=== PATIENT | female | born 1995 | race Caucasian/White ===

== ENCOUNTER → 2023-05-23 | Outpatient (CLI) | payer OTHER, SELFPAY ==
[2023-05-27 07:08] LABS: Chlamydia By Nucleic Acid AMP Negative (Negative); Gonococcus By Nucleic Acid AMP Negative (Negative)
== END | disposition home or self-care (01) ==
LOC: LABSPEC 16:51
PROVIDERS: Referring Provider Advanced Practice Midwife; Visit Provider Advanced Practice Midwife
DX: Z34.90 Encounter for supervision of normal pregnancy, unspecified, unspecified trimester (principal); Z3A.00 Weeks of gestation of pregnancy not specified
CPT/HCPCS: 87086; 87088; 87491; 87591

== ENCOUNTER → 2023-06-06 | Outpatient (CLI) | payer OTHER, SELFPAY ==
[2023-06-06 10:44] LABS: Absolute Lymphocyte Count 2.28 X10^3/uL (0.83-4.51); Absolute Neutrophil Count 5.8 X10^3/uL (2.0-7.7); Basophil# 0.03 X10^3/uL; Basophil% 0.3 % (0-1); Eosinophil# 0.02 X10^3/uL; Eosinophils% 0.2 % (0-5); Hematocrit 37.5 % (37-47); Lymphocyte # 2.28 X10^3/ul (0.83-4.51); Lymphocyte % 25.7 % (19-41); Mean Corp Hgb Conc 34.7 g/dL (32-36); Mean Corpuscular Hgb 30.1 pg (27.0-32.0); Mean Corpuscular Volume 86.8 fL (81-99); Mean Platelet Vol. 9.3 fl (6.2-12.0); Monocyte# 0.72 X10^3/uL; Monocyte% 8.1 % (0-10); NRBC Flagged by Analyzer 0 % (0-5); Neutrophil % 65.4 % (47-70); Platelet Count 359 K/mm3 (150-450); RBC Distribution Width CV 12.2 % (11.6-14.6); RBC Distribution Width SD 38.9 fl (35.1-43.9); Red Blood Count 4.32 M/mm3 (4.2-5.4); White Blood Count 8.9 K/mm3 (4.4-11.0)
[2023-06-06 11:08] LABS: Hemoglobin A1c 5.2 % (3.8-5.6)
[2023-06-06 11:15] LABS: NATERA MAILED SPECIMEN
[2023-06-06 12:00] LABS: HIV - WCH Non-Reactive (Nonreactive); Hepatitis B Surface Antigen Non-Reactive (Nonreactive); Hepatitis C Antibody Non-Reactive (Nonreactive); Rubella IgG Reactive (Nonreactive); Syphilis Antibodies Non-reactive
== END | disposition home or self-care (01) ==
LOC: LAB 10:10
PROVIDERS: Referring Provider Advanced Practice Midwife; Visit Provider Advanced Practice Midwife
DX: O99.210 Obesity complicating pregnancy, unspecified trimester (principal); Z3A.00 Weeks of gestation of pregnancy not specified
CPT/HCPCS: 36415; 83036; 85025; 86703; 86762; 86780; 86803; 86850; 86900; 86901; 87340

== ENCOUNTER → 2023-06-09 | Outpatient (CLI) | payer OTHER, SELFPAY ==
[2023-06-09 17:28] LABS: NATERA MAILED SPECIMEN
== END | disposition home or self-care (01) ==
LOC: LAB 16:21
PROVIDERS: Referring Provider Advanced Practice Midwife; Visit Provider Advanced Practice Midwife
DX: Z34.81 Encounter for supervision of other normal pregnancy, first trimester (principal)

== ENCOUNTER → 2023-07-18 | Outpatient (CLI) | payer OTHER, SELFPAY | END | disposition home or self-care (01) | LOC: LABSPEC 16:54 | PROVIDERS: Referring Provider Advanced Practice Midwife; Visit Provider Advanced Practice Midwife | DX: R35.0 Frequency of micturition (principal) | CPT/HCPCS: 87086 ==

== ENCOUNTER → 2023-09-12 | Outpatient (CLI) | payer OTHER, SELFPAY ==
[2023-09-12 10:36] LABS: Absolute Lymphocyte Count 2.32 X10^3/uL (0.83-4.51); Absolute Neutrophil Count 7.6 X10^3/uL (2.0-7.7); Basophil# 0.04 X10^3/uL; Basophil% 0.4 % (0-1); Eosinophil# 0.02 X10^3/uL; Eosinophils% 0.2 % (0-5); Hematocrit 30.6 % (37-47); Hemoglobin 10.1 g/dL (12.0-15.0); Lymphocyte # 2.32 X10^3/ul (0.83-4.51); Lymphocyte % 21.6 % (19-41); Mean Corpuscular Hgb 29.8 pg (27.0-32.0); Mean Corpuscular Volume 90.3 fL (81-99); Mean Platelet Vol. 9.1 fl (6.2-12.0); Monocyte# 0.67 X10^3/uL; Monocyte% 6.2 % (0-10); NRBC Flagged by Analyzer 0 % (0-5); Neutrophil % 70.7 % (47-70); Platelet Count 334 K/mm3 (150-450); RBC Distribution Width CV 12.7 % (11.6-14.6); RBC Distribution Width SD 41.7 fl (35.1-43.9); Red Blood Count 3.39 M/mm3 (4.2-5.4); White Blood Count 10.8 K/mm3 (4.4-11.0)
[2023-09-12 10:47] LABS: Glucose Challenge Gest 1H 50g 140 mg/dL (70-140)
[2023-09-12 11:22] LABS: HIV - WCH Non-Reactive (Nonreactive); Syphilis Antibodies Non-reactive
--- OUTSIDE RECORDS SUMMARY | 2023-09-12 13:00 | XMS RPT_ITS | CCD ---
Author Name Unknown Address [facility] [place] [address] Organization [facility] Care Team Providers Care Industrial Hygiene Engineer Name Role Phone GABRIEL HUDSON Referring Unavailable YONY CABAN Attending Unavailable GABRIEL HUDSON Attending Unavailable GORDON PRIMARY CAREMD Primary Care Unavailable GARRET JAY Referring UnavailRITA Worley Attending Unavailable Problems Problem Classification Problem Date Documented Da te Episodic/Chronic Abdominal pain (2 sources) Unspecified abdominal pain; Translations: [Unspecified abdominal pain] Onset: 08-14-2022 Episodic Fluid and electrolyte disorders (2 sources) Dehydration; Translations: [Dehydration] Onset: 08-14-2022 Episodic Urinary tract infections (2 sources) Urinary tract infection, site not specified; Translations: [Urinary tract infection, site not specified] Onset: 08-14-2022 Episodic Results Test Name Value Interpretation Reference Range Facil ity Encounters Encounter Date Encounter Type Care Provider Facility Start: 07-31-2023 End: 07-31-2023 ambulatory MD [facility] Start: 08-14-2022 End: 08-15-2022 Emergency department patient visit GABRIEL [facility] Start: 08-14-2022 End: 08-14-2022 Emergency department patient visit GABRIEL [facility] Start: 08-14-2022 End: 08-14-2022 ambulatory YONY CABAN [facility] Payers Date Payer Category Payer Unknown [id number] 1995 Unknown [id number] Private Health Insurance [id number] Clinical Note 08-14-2022 Note Date & Type Note Facility 08-14-2022 Note Patient returned to the unit, resting comfortably in cot awaiting CT results for further plan of care. Patients mother bedside. Shari Ga, RN 08/14/22 1611 [facility] Summary Purpose Family History No Family History Records FoundNo Family History Records FoundNo Family History Records FoundNo Family History Records Found Advance Directives No Advanced Directives Records FoundNo Advanced Directives Records FoundNo Advanced Directives Records FoundNo Advanced Directives Records Found Additional Source Comments INFORMATION SOURCE (unrecogn ized section and content) DATE CREATED AUTHOR AUTHOR'S ORGANIZ ATION 07/02/2020 [facility] DATE CREATED AUTHOR AUTHOR'S ORGANIZ ATION 08/20/2022 [facility] DATE CREATED AUTHOR AUTHOR'S ORGANIZ ATION 08/01/2023 [facility] FOR RECORDS PERTAINING TO PATIENTS WHO ARE OR HAVE BEEN ENROLLED IN A CHEMICAL DEPENDENCY/SUBSTANCEABUSE PROGRAM, SOME INFORMATION MAY BE OMITTED. This clinical summary was aggregated from multiple sources. Caution should be exercised in using it in the provision of clinical care. This summary normalizes information from multiple sources, and as a consequence, information in this document may materially change the coding, format and clinical context of patient data. In addition, data may be omitted in some cases. CLINICAL DECISIONS SHOULD BE BASED ON THE PRIMARY CLINICAL RECORDS. [facility] [employer] provides no warranty or guarantee of the accuracy or completeness of information in this document.
== END | disposition home or self-care (01) ==
LOC: PAVLAB 10:15
PROVIDERS: Advanced Practice Midwife; Referring Provider Obstetrics & Gynecology; Visit Provider Obstetrics & Gynecology
DX: O09.90 Supervision of high risk pregnancy, unspecified, unspecified trimester (principal); Z13.1 Encounter for screening for diabetes mellitus; Z3A.00 Weeks of gestation of pregnancy not specified
CPT/HCPCS: 36415; 82950; 85025; 86703; 86780

== ENCOUNTER → 2023-10-09 | Outpatient (CLI) | payer OTHER, SELFPAY ==
--- OUTSIDE RECORDS SUMMARY | 2023-10-09 07:16 | XMS RPT_ITS | CCD ---
Author Name Unknown Address [facility] [place] [address] Organization [facility] Care Team Providers Care Reservationist Name Role Phone GABRIEL HUDSON Referring Unavailable [...] End: 07-31-2023 ambulatory MD [facility] Start: 08-14-2022 End: 08-15-2022 Emergency department patient visit GABRIEL [facility] Start: 08-14-2022 End: 08-14-2022 Emergency department patient visit GABRIEL [facility] Start: 08-14-2022 End: 08-14-2022 ambulatory YONY CABAN [facility] Payers Date Payer Category Payer Unknown [id number] 1995 Unknown [id number] Private Health Insurance [id number] Clinical Note 08-14-2022 Note Date & Type Note Facility 08-14-2022 Note Patient returned to the unit, resting comfortably in cot awaiting CT results for further plan of care. Patients mother bedside. Shari Ga, RN 08/14/22 1611 [facility] Summary Purpose Family History No Family History Records FoundNo Family History Records FoundNo Family History Records FoundNo Family History Records Found Advance Directives No Advanced Directives Records FoundNo Advanced Directives Records FoundNo Advanced Directives Records FoundNo Advanced Directives Records Found Additional Source Comments INFORMATION SOURCE (unrecogn ized section and content) DATE CREATED AUTHOR AUTHOR'S ORGANIZ ATION 07/02/2020 [facility] DATE CREATED AUTHOR AUTHOR'S ORGANIZ ATION 08/20/2022 [facility] DATE CREATED AUTHOR AUTHOR'S ORGANIZ ATION 08/01/2023 [facility] FOR RECORDS PERTAINING TO PATIENTS WHO ARE [...] BE BASED ON THE PRIMARY CLINICAL RECORDS. [facility] [employer] provides no warranty or guarantee of the accuracy or completeness of information in this document.
[2023-10-09 07:58] LABS: Glucose GTT-Gestation. Fasting 81 mg/dL (<105)
[2023-10-09 09:22] LABS: Glucose GTT-Gestational 1 Hr 153 mg/dL (<190)
[2023-10-09 10:28] LABS: Glucose GTT-Gestational 2 Hr 134 mg/dL (<165)
[2023-10-09 11:22] LABS: Glucose GTT-Gestational 3 Hr 55 L (<145)
== END | disposition home or self-care (01) ==
LOC: LAB 07:07
PROVIDERS: Referring Provider Advanced Practice Midwife; Visit Provider Advanced Practice Midwife
DX: R69 Illness, unspecified (principal)
CPT/HCPCS: 36415; 82951; 82952

== ENCOUNTER → 2023-10-24 | Outpatient (CLI) | payer OTHER, SELFPAY ==
--- OUTSIDE RECORDS SUMMARY | 2023-10-24 09:44 | XMS RPT_ITS | CCD ---
Author Name Unknown Address [address] [place] [address] Organization [facility] Care Team Providers Care Strap Making Machine Operator Name Role Phone GABRIEL HUDSON Referring Unavailable [...] End: 07-31-2023 ambulatory MD [facility] Start: 08-14-2022 End: 08-15-2022 Emergency department patient visit GABRIEL [facility] Start: 08-14-2022 End: 08-14-2022 Emergency department patient visit GABRIEL [facility] Start: 08-14-2022 End: 08-14-2022 ambulatory YONY CABAN [facility] Payers Date Payer Category Payer Unknown [id number] 1995 Unknown [id number] Private Health Insurance [id number] Clinical Note 08-14-2022 Note Date & Type Note Facility 08-14-2022 Note Patient returned to the unit, resting comfortably in cot awaiting CT results for further plan of care. Patients mother bedside. Shari Ga, RN 08/14/22 1611 [facility] Summary Purpose Family History No Family History Records FoundNo Family History Records FoundNo Family History Records FoundNo Family History Records Found Advance Directives No Advanced Directives Records FoundNo Advanced Directives Records FoundNo Advanced Directives Records FoundNo Advanced Directives Records Found Additional Source Comments INFORMATION SOURCE (unrecogn ized section and content) DATE CREATED AUTHOR AUTHOR'S ORGANIZ ATION 07/02/2020 [facility] DATE CREATED AUTHOR AUTHOR'S ORGANIZ ATION 08/20/2022 [facility] DATE CREATED AUTHOR AUTHOR'S ORGANIZ ATION 08/01/2023 [facility] FOR RECORDS PERTAINING TO PATIENTS WHO [...] BE BASED ON THE PRIMARY CLINICAL RECORDS. [facility] [employer] provides no warranty or guarantee of the accuracy or completeness of information in this document.
[2023-10-24 09:51] LABS: Absolute Lymphocyte Count 2.54 X10^3/uL (0.83-4.51); Absolute Neutrophil Count 7.7 X10^3/uL (2.0-7.7); Basophil# 0.05 X10^3/uL; Basophil% 0.4 % (0-1); Eosinophil# 0.03 X10^3/uL; Eosinophils% 0.3 % (0-5); Hematocrit 30.9 % (37-47); Lymphocyte # 2.54 X10^3/ul (0.83-4.51); Lymphocyte % 22.2 % (19-41); Mean Corp Hgb Conc 32.4 g/dL (32-36); Mean Corpuscular Hgb 28.3 pg (27.0-32.0); Mean Corpuscular Volume 87.5 fL (81-99); Mean Platelet Vol. 9.3 fl (6.2-12.0); Monocyte# 0.97 X10^3/uL; Monocyte% 8.5 % (0-10); NRBC Flagged by Analyzer 0 % (0-5); Neutrophil # 7.72 X10^3/uL (2.7-7.7); Neutrophil % 67.4 % (47-70); Platelet Count 358 K/mm3 (150-450); RBC Distribution Width CV 12.7 % (11.6-14.6); RBC Distribution Width SD 40.5 fl (35.1-43.9); Red Blood Count 3.53 M/mm3 (4.2-5.4); White Blood Count 11.5 K/mm3 (4.4-11.0)
[2023-10-24 10:14] LABS: Ferritin 17 ng/mL (8-252); Iron 88 ug/dL (50-170); Iron Binding Capacity,Total 428 ug/dL (250-450); PERCENT IRON SATURATION 20.6 % (15.0-55.0)
== END | disposition home or self-care (01) ==
PROVIDERS: Referring Provider Registered Nurse; Visit Provider Registered Nurse
DX: O99.019 Anemia complicating pregnancy, unspecified trimester (principal); Z3A.00 Weeks of gestation of pregnancy not specified
CPT/HCPCS: 36415; 82728; 83540; 83550; 85025

== ENCOUNTER 2023-11-11 08:50 | Outpatient (CLI) | payer OTHER, SELFPAY ==
[2023-11-11 09:09] VITALS: BP 111/69; PULSE 102; O2SAT 94
[2023-11-11 09:10] VITALS: RESP 16; TEMP 36.8; O2SAT 97
[2023-11-11] MEDS: Lactated Ringers 1,000 ML 999 ML IV (09:25)
[2023-11-11 09:36] VITALS: BMI 32.9
[2023-11-11] MEDS: Ondansetron 4 MG/2 ML Vial IV (09:48)
--- NOTE | 2023-11-11 18:08 | OB.TRI.PN ---
Progress Notes Date of Service: 11/11/23 Progress Note: Patient presents for triage evaluation secondary to nausea and vomiting FHT: 140 Moderate variability reactive no decelerations category I tracing [place]: regular tightening of abdomen/not feeling contractions Assessment and plan: closed SVE, IV fluids and zofran. Feeling better with hydration. likely viral. Reactive NST, reassuring maternal and status patient discharged to home to follow-up in office or PRN if vomiting continues. See problem list details for additional plan information. Charges/Coding Multi Select Codes Urinary/Genital Urinary/Genital CPT Codes: 81660-79 non-stress test Interp Assessment & Plan (1) Nausea and vomiting: COMMENT: Zofran (2) : QUALIFIERS: Weeks of gestation: 33 weeks Qualified Code(s): Z3A.33 - 33 weeks gestation of COMMENT: Carrier neg. 106/106, NIPT low risk, nl anatomy with consistent WAQAS (3) Supervision of high risk , antepartum: COMMENT: PRR, WAQAS 12/23/23 BF Matias (4) Obesity affecting : COMMENT: A1C normal (5) UTI (urinary tract infection) in , antepartum: COMMENT: nl at re check (6) Abnormal glucose affecting : COMMENT: nl 3 hour gct (7) Anemia affecting : COMMENT: start po iron
== END 2023-11-11 11:18 | disposition home or self-care (01) ==
LOC: WPOUT 08:58 → WP 08:58
PROVIDERS: Referring Provider Advanced Practice Midwife; Visit Provider Advanced Practice Midwife
DX: O21.2 Late vomiting of pregnancy (principal); O09.93 Supervision of high risk pregnancy, unspecified, third trimester; O99.213 Obesity complicating pregnancy, third trimester; O99.013 Anemia complicating pregnancy, third trimester; Z3A.33 33 weeks gestation of pregnancy
CPT/HCPCS: 96374; 96361; 59025; 59050; 99221; J7120; G0378; J2405

== ENCOUNTER → 2023-11-28 | Outpatient (CLI) | payer OTHER, SELFPAY | END | disposition home or self-care (01) | PROVIDERS: Referring Provider Advanced Practice Midwife; Visit Provider Advanced Practice Midwife | DX: Z34.90 Encounter for supervision of normal pregnancy, unspecified, unspecified trimester (principal) | CPT/HCPCS: 87081 ==

== ENCOUNTER 2023-12-15 07:34 | Inpatient (IN) | payer OTHER, SELFPAY ==
[2023-12-15] VITALS (72 sets, daily range): BP systolic 95–180; BP diastolic 51–129; PULSE 75–112; RESP 14–17; TEMP 36.8–38.3; O2SAT 81–99; BMI 32.6
[2023-12-15 07:30] LABS: ROM Internal Control Test YES-OK TO RESULT pt. (Internal QC)
[2023-12-15 07:31] LABS: ROM Patient Test POSITIVE (Negative); Record Kit Lot#, ROM+ K1409
--- NOTE | 2023-12-15 07:41 | HP.PCM.OB_ITS ---
HPI - General General Date of Admission: 12/15/23 Date of Service: 12/15/23 HPI Narrative SHAKIR CERDA, is a 28 F 38.6 weeks gestation who presents to unit with vaginal discharge and contractions. +ROM. SROM at 0500 for clear fluid Maternal Data Information WAQAS Calculator Estimated Delivery Date Method Current WG Current Estimate 12/23/23 LMP (Certain) 38w 6d Final WAQAS: 12/23/23 Final WAQAS Source: US >20 weeks Gestational age: 38.6 weeks PFSH PFSH Medical History Osteomyelitis of ankle and foot Home Medications vitamins-iron fumarate 65 mg iron-folic acid 1 mg tablet (Mynatal Plus) 1 tab PO DAILY 11/11/23 [History Last Taken 12/14/23] Allergy/AdvReac Type Severity Reaction Status Date / Time No Known Allergies Allergy Verified 12/15/23 07:35 Social History adopted: No household members: family housing: house current occupational status: employed pets and animals: No history of recent travel: No sexually active: Yes Smoking Status: Never smoker alcohol intake: never substance use type: does not use caffeine: No seatbelt use: always do you feel safe at home: Yes additional social history: BF- Matias momAnna Ursula History 1 Elective abortions Hx Para 0 Spontaneous abortions Hx # Term Pregnancies Ectopic pregnancies Hx # Pregnancies Multiple births # of living children Visit Details Expected Delivery Route/Plan Labor Preferences- CB/BF classes: declined labor support person: ursulaAnna gia mom Janae riddle mom devorah rodriguez labor intervention preferences: none pain management options preferred: open cut cord/dad catch: yes : yes PP control planned: [] discussed possible routes of delivery and associated risks: [] special requests: [] Plans Covid status: [] Flu vaccine: [] Tdap vaccine: given Rhogam: na LARC form signed: declined movement and labor precautions reviewed. Problem list reviewed and updated with the most current plan of care details and appropriate orders placed. Relevant counseling for the gestational age provided. Continue routine care and follow up unless otherwise noted in visit notes/problem list details OB Flowsheet Initial Weight: Not Recorded Date -?-?-?-?-?-?-?-?-?-?-?-?- EGA Weight BP Urine Prot -?-?-?-?-?-?-?-?-?-?-?-?- Glucose FHR FuHt Pres Dilation -?-?-?-?-?-?-?-?-?-?-?-?- Effaced St Visit Note 05/23/23 -?-?-?-?-?-?-?-?-?-?-?-?- 9w 3d 192 lb 6 oz 120/80 -?-?-?-?-?-?-?-?-?-?-?-?- 163 -?-?-?-?-?-?-?-?-?-?-?-?- KW- CRL 23.6-con s with dates. having some N&V. zofran and comfort measures recommended 06/19/23 -?-?-?-?-?-?-?-?-?-?-?-?- 13w 2d 190 lb 4 oz 100/69 Nega tive -?-?-?-?-?-?-?-?-?-?-?-?- Negative 160 -?-?-?-?-?-?-?-?-?-?-?-?- KW-no vb/crampin g. labs reviewed. Discussed AFP today and wants to think about it. Formal US ordered today. 07/18/23 -?-?-?-?-?-?-?-?-?-?-?-?- 17w 3d 185 lb 114/77 Trace -?-?-?-?-?-?-?-?-?-?-?-?- Negative 160 -?-?-?-?-?-?-?-?-?-?-?-?- kw- no vb/crampi ng. declines AFP. UTI today. Treated. 08/20/23 -?-?-?-?-?-?-?-?-?-?-?-?- 22w 1d 192 lb 116/77 Negative -?-?-?-?-?-?-?-?-?-?-?-?- Negative 147 -?-?-?-?-?-?-?-?-?-?-?-?- JV- no lof, vagi nal bleeding, or cramping. normal anatomy scan. 09/12/23 -?-?-?-?-?-?-?-?-?-?-?-?- 25w 3d 197 lb 102/63 Negative -?-?-?-?-?-?-?-?-?-?-?-?- Negative 150 26 -?-?-?-?-?-?-?-?-?-?-?-?- KW- no vb/crampi ng. good fm. needs 3 hour glucose. start PO iron. 10/10/23 -?-?-?-?-?-?-?-?-?-?-?-?- 29w 3d 198 lb 6 oz 118/76 Nega tive -?-?-?-?-?-?-?-?-?-?-?-?- Negative 144 29 -?-?-?-?-?-?-?-?-?-?-?-?- LC-no vb/ctx/lof . good fm. passed 3 hour. larc signed. tdap given today. cbc and iron studies to be obtained today. 10/24/23 -?-?-?-?-?-?-?-?-?-?-?-?- 31w 3d 203 lb 6 oz 124/74 Nega tive -?-?-?-?-?-?-?-?-?-?-?-?- Negative 155 31 -?-?-?-?-?-?-?-?-?-?-?-?- KW- no vb/lof/ct x. good fm. to get labs today after appt. no concerns. 11/07/23 -?-?-?-?-?-?-?-?-?-?-?-?- 33w 3d 197 lb 6 oz Negative -?-?-?-?-?-?-?-?-?-?-?-?- Negative 145 33 Cephalic -?-?-?-?-?-?--?-?-?-?-?-?- KW- no vb/lof/ct x. good fm. 11/21/23 -?-?-?-?-?-?-?-?-?-?-?-?- 35w 3d 201 lb 106/61 Negative -?-?-?-?-?-?-?-?-?-?-?-?- Negative 140 35 -?-?-?-?-?-?-?-?-?-?-?-?- LC- no vb/ctx/lo f.good fm. obtain cbc next visit to check H&H. 11/28/23 -?-?-?-?-?-?-?-?-?-?-?-?- 36w 3d 197 lb 2 oz 102/64 Nega tive -?-?-?-?-?-?-?-?-?-?-?-?- Negative 135 36 Cephalic 2 -?-?-?-?-?-?-?-?-?-?-?-?- 50 -3 KW- no vb/ lof/ctx. good fm. gbs today. labor precautions. cbc today 12/05/23 -?-?-?-?-?-?-?-?-?-?-?-?- 37w 3d 199 lb 6 oz 199 lb 6 oz 111/82 Trace -?-?-?-?-?-?-?-?-?-?-?-?- Negative 130 Cephalic 2 -?-?-?-?-?-?-?-?-?-?-?-?- 80 -2 JV- no vag inal bleeding, or dec fm. thought was leaking fluid. KT today is normal to high. membranes felt on exam. no fluid seen. labor precautions discussed. 12/12/23 -?-?-?-?-?-?-?-?-?-?-?-?- 38w 3d 198 lb 120/78 Negative -?-?-?-?-?-?-?-?-?-?-?-?- Negative 145 38 Cephalic 2 -?-?-?-?-?-?-?-?-?-?-?-?- 80 -2 SM- no vb lof good fm irregular ctx co nausea and vomiting intermittnetly for the last few weeks NST FHR Rate Baby B Baseline: 130 Variability:: Moderate Accelerations:: 15 x 15 Decelerations:: None NST Reactive:: Yes FHR Category:: Category I Uterine Activity:: 3-4 minutes ROS Constitutional Constitutional: Denies change in weight, fatigue, fever(s), headache(s), poor appetite or weakness Eyes Eyes: Denies blurry vision, change in vision, floaters, seeing flashes or spots in vision ENT HEENT: Denies dizziness, headache(s), loss taste/smell or sore throat Cardiovascular Cardiovascular: Denies chest pain, dizziness, dyspnea, irregular heart rhythm, lightheadedness, palpitations or rapid heart rate Respiratory/Chest Respiratory/Chest: Denies change in mental status, chest tightness, cough, dyspnea or breast pain Gastrointestinal Gastrointestinal: Denies anorexia, chewing difficulty, constipation, diarrhea or weight changes Genitourinary Genitourinary: Denies difficulty urinating, dysuria, flank pain, genital pain, urinary frequency or urinary urgency Musculoskeletal Musculoskeletal: Denies back pain, difficulty walking, extremity pain, joint pain, muscle cramps or muscle weakness Integumentary Integumentary: Denies lesions or unusual bruising Neurologic Neurologic: Denies abnormal movements, abnormal speech, dizziness, numbness, seizure-like activity, syncope or weakness Psychiatric Psychiatric: Denies behavioral changes, change in appetite, confusion, depression, homicidal ideation, suicidal ideation or suicidal thoughts Endocrine Endocrinology: Denies excessive sweating, polydipsia or polyuria Hematologic/Lymphatic Hematologic/Lymphatic: Denies anemia Allergic/Immunologic Allergic/Immunologic: Denies itchy eyes, lip swelling, throat swelling, tongue swelling or wheezing Vital Signs Vital Signs Vital Signs: 12/15/23 06:49 12/15/23 06:49 12/15/23 06:50 Temperature Temperature Source Pulse Rate 96 97 Respiratory Rate Blood Pressure 129/78 H BP Systolic 129 BP Diastolic 78 Pulse Ox 12/15/23 06:50 12/15/23 06:49 12/15/23 06:49 Temperature Temperature Source Oral Pulse Rate Respiratory Rate 16 Blood Pressure BP Systolic BP Diastolic Pulse Ox 96 12/15/23 06:49 Temperature 98.4 F Temperature Source Pulse Rate Respiratory Rate Blood Pressure BP Systolic BP Diastolic Pulse Ox Weight Weight: 196 lb 3.382 oz Body Mass Index (BMI) 32.6 Physical Exam Const alert, oriented x3 and no apparent distress General Appearance: cooperative Orientation / Consciousness: awake HEENT normocephalic Neck full ROM Lymph Lymphatic: no lymphadenopathy noted Chest inspection of chest normal Resp normal respiratory effort and normal air movement Effort and Inspection: able to speak in complete sentences and symmetric chest movement GI soft to palpation and non-tender Inspection: gravid Palpation: soft; Negative for tender external exam normal Manual OB Exam: dilated 3, effaced 80 and station -2 Back/Spine normal to inspection Extremity normal to inspection and full ROM Skin no rashes or lesions noted Psych mental status grossly normal Appearance: grossly normal Speech: normal speech Labs Labs Labs: Blood Type O POSITIVE Antibody Screen NEGATIVE Hct 30.9 % (37-47) L Hgb 10.0 g/dL (12.0-15.0) L Syphilis Total Ab Non-reactive Rubella IgG Antibody Reactive (Nonreactive) Hep Bs Antigen Non-Reactive (Nonreactive) Hepatitis C Antibody Non-Reactive (Nonreactive) Chlamydia DNA (MIHAELA) Negative (Negative) N.gonorrhoeae DNA (MIHAELA) Negative (Negative) HIV 1&2 Antibody Non-Reactive (Nonreactive) Glucose 1 Hr 50 gm 140 mg/dL (70-140) Gest Glucose Tolerance MG/DL Assessment & Plan (1) Active labor: PLAN: Patient presents IAL, plan expectant management for , pitocin/AROM PRN if needed. Pain management: plans epidural. GBS negative. Management of any complications: none I have reviewed the [facility] and made any clinically relevant updates. Dr Cruz notified of admission and agrees with current assessment and plan of care (2) Anemia affecting : COMMENT: start po iron (3) Abnormal glucose affecting : COMMENT: nl 3 hour gct (4) UTI (urinary tract infection) in , antepartum: COMMENT: nl at re check (5) Obesity affecting : COMMENT: A1C normal (6) Supervision of high risk , antepartum: COMMENT: PRR, WAQAS 12/23/23 girl Hermleigh Fiance: Matias (7) : QUALIFIERS: Weeks of gestation: 37 weeks Qualified Code(s): Z3A.37 - 37 weeks gestation of COMMENT: GBS neg, Carrier neg. 106/106, NIPT low risk, nl anatomy with consistent WAQAS (8) Nausea and vomiting: COMMENT: Bree Charges/Coding Multi Select Codes Urinary/Genital Urinary/Genital CPT Codes: No Charge
[2023-12-15] MEDS: Lactated Ringers 1,000 ML 50 ML IV (08:09)
[2023-12-15 08:19] LABS: Absolute Lymphocyte Count 2.38 X10^3/uL (0.83-4.51); Absolute Neutrophil Count 7.8 X10^3/uL (2.0-7.7); Basophil# 0.04 X10^3/uL; Basophil% 0.4 % (0-1); Eosinophil# 0.02 X10^3/uL; Eosinophils% 0.2 % (0-5); Hematocrit 33.7 % (37-47); Hemoglobin 11.3 g/dL (12.0-15.0); Lymphocyte # 2.38 X10^3/ul (0.83-4.51); Mean Corp Hgb Conc 33.5 g/dL (32-36); Mean Corpuscular Volume 86.6 fL (81-99); Mean Platelet Vol. 9.3 fl (6.2-12.0); Monocyte# 0.95 X10^3/uL; Monocyte% 8.4 % (0-10); NRBC Flagged by Analyzer 0 % (0-5); Neutrophil # 7.82 X10^3/uL (2.7-7.7); Platelet Count 377 K/mm3 (150-450); RBC Distribution Width SD 40.6 fl (35.1-43.9); Red Blood Count 3.89 M/mm3 (4.2-5.4); White Blood Count 11.3 K/mm3 (4.4-11.0)
[2023-12-15] MEDS: LACTATED RINGERS 500 ML 999 ML IV ×2 (08:26→20:50)
[2023-12-15] MEDS: fentaNYL-bupivacaine (epidural) 100 ML BAG EPIDURAL ×3 (09:05→18:00)
[2023-12-15 09:07] LABS: Syphilis Antibodies Non-reactive
[2023-12-15] MEDS: Oxytocin 15 Units/NS 250ml 15 UNITS/250 ML IV.SOLN 2 UNITS IV (10:43)
--- NOTE | 2023-12-15 12:15 | PCM.PN.BLA ---
Progress Note comfortable with epidural current tracing: FHT: 125 Moderate variability reactive no decelerations category I tracing Painter: 2.5-3 minutes Contractions Membranes:SROM at 0500, forebag broken at 1200 for clear fluid SVE:5/90/-1 A/P: Continue with position changes Titrate pitocin per protocol Epidural per anesthesia Anticipate Dr Cruz aware of above assessment and agrees with plan of care Assessment & Plan Assessment/Plan (1) Active labor: (2) Anemia affecting : (3) Abnormal glucose affecting : (4) Obesity affecting : (5) Supervision of high risk , antepartum: (6) : QUALIFIERS: Weeks of gestation: 37 weeks Qualified Code(s): Z3A.37 - 37 weeks gestation of (7) Nausea and vomiting: Multi Select Codes Urinary/Genital Urinary/Genital CPT Codes: No Charge
[2023-12-15] MEDS: Lactated Ringers 1,000 ML 200 ML IV ×2 (13:32→18:00)
[2023-12-15] MEDS: Ondansetron 4 MG/2 ML Vial IV ×2 (15:52→20:12)
--- NOTE | 2023-12-15 15:54 | PCM.PN.BLA ---
Progress Note comfortable with epidural current tracing: FHT: 135 Moderate variability reactive no decelerations category I tracing [place]: 2-2.5 minutes Contractions Membranes:remain clear SVE:7/90/0 A/P: Continue with position changes pitocin off at 1443 per protocol Epidural per anesthesia Anticipate Dr Cruz aware of above assessment and agrees with plan of care Assessment & Plan Assessment/Plan (1) Active labor: (2) Anemia affecting : (3) Abnormal glucose affecting : (4) Obesity affecting : (5) Supervision of high risk , antepartum: (6) : QUALIFIERS: Weeks of gestation: 37 weeks Qualified Code(s): Z3A.37 - 37 weeks gestation of (7) Nausea and vomiting: Multi Select Codes Urinary/Genital Urinary/Genital CPT Codes: No Charge
--- NOTE | 2023-12-15 20:50 | PCM.PN.BLA ---
Progress Note comfortable with epidural current tracing: FHT: 160 Moderate variability reactive late vs variable decelerations category II tracing [place]: 2-3 Contractions Membranes:ruptured remains clear SVE:pushing reviewed tracing abnormalities since last note: collaboration with Dr Gonzalez at this time for Cat II FHT tracing. A/P: Continue with position changes pitocin off Epidural per anesthesia Pushing well with contractions Dr Cruz notified of FHT and in route to hospital Anticipate with kiwi Dr Cruz aware of above assessment and agrees with plan of care Assessment & Plan Assessment/Plan (1) intolerance to labor, delivered, current hospitalization: (2) Active labor: (3) Anemia affecting : (4) Abnormal glucose affecting : (5) Obesity affecting : (6) Supervision of high risk , antepartum: (7) : QUALIFIERS: Weeks of gestation: 37 weeks Qualified Code(s): Z3A.37 - 37 weeks gestation of (8) Nausea and vomiting: Procedures Urinary/Genital [id number]: No Charge
[2023-12-15] MEDS: Lidocaine 1% (20 ml mdv) 20 ML Vial INFILT (21:27)
--- NOTE | 2023-12-15 21:43 | OP.PCM_ITS ---
Assessment & Plan (1) intolerance to labor, delivered, current hospitalization: (2) Active labor: (3) Anemia affecting : COMMENT: start po iron (4) Abnormal glucose affecting : COMMENT: nl 3 hour gct (5) Obesity affecting : COMMENT: A1C normal (6) Supervision of high risk , antepartum: COMMENT: PRR, WAQAS 12/23/23 [place]: Matias (7) : QUALIFIERS: Weeks of gestation: 37 weeks Qualified Code(s): Z3A.37 - 37 weeks gestation of COMMENT: GBS neg, Carrier neg. 106/106, NIPT low risk, nl anatomy with consistent WAQAS Maternal Data Information WAQAS Calculator Estimated Delivery Date Method Current WG Current Estimate 12/23/23 LMP (Certain) 38w 6d Gestational age: 38 weeks 6 days [place] Doctor Who Attended Delivery: Jose Berger Vaginal Delivery Maternal Presentation Maternal Presentation: Active Labor Type of Induction: Pitocin and Amniotomy Operative Information Date of Procedure: 12/15/23 Pre-Operative Diagnosis: 28 y/o @ 38 weeks, active labor, intolerance to labor Post-Operative Diagnosis: 28 y/o @ 38 weeks, active labor, intolerance to labor Type of Anesthesia: Epidural Drain: Raymond to straight drain Estimated Blood Loss: 200cc Time of Delivery: 21:12 Findings Description of Procedure: Details of delivery: This is a 23 year old woman who was admitted to labor and delivery for active labor. The decision was made to perform a vacuum extraction due late declerations with minimal to no variability at times.The heart rate was noted to be 190's. The risk benefits and alternatives of the procedure were d iscussed with the patient and verbal consent was obtained. The was noted to be at a +2 station, the cervix was completely dilated. The infant's head was noted to be in the right occiput anterior presentation. The vacuum was placed in the correct placement in front of the posterior fontanelle. This was confirmed digitally. With the patient's next contraction, a mediolateral episiotomy was performed and the vacuum was inflated and a gentle downward pressure was used to assist with bringing the baby's head to a +3 station. With 2 pull and 0 pop offs. The head was delivered at raumatically. No nuchal cord was noted. The anterior shoulder followed by the posterior shoulder were delivered without difficulty. The was handed off to the patient's chest. The infant was found to be vigorous and crying and moving of all 4 extremities. The mouth and nares were bulb suctioned. After 60 second delay the cord was clamped and cut and the infant was handed off to the awaiting nurses for routine assessment. The placenta was delivered with gentle traction and uterine massage. Inspection of the vagina cervix and perineum was performed. There was a 3rd degree perineal laceration and no lacerations to the vagina or to the cervix. The perineal laceration was closed using a 2-0 and 3-0 Vicryl in the usual sterile fashion. The patient tolerated the procedure well sponge lap and needle counts were correct x2 and she is now recovering in stable condition. Presentation: Vertex Amniotic Membrane Rupture Type: Artificial Amniotic Fluid Description: Moderate meconium Placental Delivery Description: Spontaneous Placenta Disposition: [facility] Cord Vessel Description: 3 Vessels Cord Entanglement: None A Gender: Female (1 minute): 8 (5 minute): 9 Delayed Cord Clamping: Yes Post Vaginal Delivery Medications Given After Delivery: IV Pitocin Episiotomy Description: Left Mediolateral Laceration: 3rd degree Complication Complications: None Multi Select Codes Urinary/Genital Urinary/Genital CPT Codes: 75455 Vaginal Delivery [facility]
--- NOTE | 2023-12-15 21:49 | DCINST_ITS ---
Discharge Instructions Diet Discharge Diet: No restrictions Activity Discharge Activity: Return to Normal Activity, May Not Drive (while taking narcotic pain medications.) and May Shower May resume sexual activity in: 4-6 weeks Dressing / Incision Call your doctor if your incision/area has: Continuous Slow Oozing, Sudden Increased Bleeding, Increased Pain/ Swelling, Increased Redness and Foul Smelling Discharge Follow Up Care Please Follow Up With: Khushboo Gonzalez, When: Call [phone] to make an appointment with your doctor in 6 weeks. If you had elevated blood pressure or 4th degree laceration, you will need to be seen in 2 weeks. Test Results: Test results from this visit will be discussed in further detail at your follow- up appointment, if applicable. Discharge Plan Admission Admit Date/Time: 12/15/23 07:34 Attending Provider: Khushboo Gonzalez Primary Care Provider: Care Physician,Mariia Primary Discharge Orders/Prescriptions Prescriptions: New docusate sodium [Colace] 100 mg capsule 100 mg PO BID Qty: 60 0RF ibuprofen 800 mg tablet 800 mg PO Q8H PRN (Reason: pain) Qty: 30 0RF No Action Mynatal Plus 65 mg iron- 1 mg tablet 1 tab PO DAILY Referrals / Follow Up: Care Physician,No Primary [Primary Care Provider] - Disposition Disposition (needs filled in before D/C Order can be placed): Home, Self Care
[2023-12-15] MEDS: Oxytocin 15 Units/NS 250ml 15 UNITS/250 ML IV.SOLN 83 UNITS IV (21:50)
[2023-12-15] MEDS: Gentamicin IV 280 MG in Dextrose 5%-Water (50mL Bag) 50 ML 100 MG IVPB (22:17)
[2023-12-15] MEDS: Acetaminophen 500 MG Tablet PO (23:07)
[2023-12-15] MEDS: Ampicillin 2 GM in 0.9% Normal Saline (100mL MB+) 100 ML IV (23:09)
[2023-12-15] MEDS: Senna/Docusate Sodium 1 Tablet PO (23:30)
[2023-12-15] MEDS: Naproxen 500 MG Tablet PO (23:30)
[2023-12-15] MEDS: Benzocaine/Lanolin/Aloe Vera 1 SPRAY EACH TOPICAL (23:31)
[2023-12-16 05:02] VITALS: BP 96/63; PULSE 64; RESP 18; TEMP 36.2; O2SAT 98
[2023-12-16] MEDS: Acetaminophen 500 MG Tablet 1000 MG PO ×3 (06:06→20:30)
[2023-12-16] MEDS: Ampicillin 2 GM in 0.9% Normal Saline (100mL MB+) 100 ML IV ×3 (06:07→17:51)
[2023-12-16] MEDS: Naproxen 500 MG Tablet PO ×2 (08:27→15:35)
[2023-12-16 09:00] VITALS: BP 98/61; PULSE 66; RESP 24; TEMP 36.8
--- NOTE | 2023-12-16 09:59 | PCM.PN.OB ---
Subjective Subjective Patient doing well without complaints. Tolerating PO. Ambulating and voiding without difficulty. infant feeding well. Denies chest pain, shortness of breath, calf pain/swelling, fevers, chills, lightheadedness. Objective Data Objective Data Vital Signs: Vital Signs Temp Pulse Resp BP Pulse Ox O2 Del Method 98.3 F 66 24 H 98/61 98 Room Air 12/16/23 09:00 12/16/23 09:00 12/16/23 09:00 12/16/23 09:00 12/16/23 05:02 12/16/23 05:02 Oxygen Delivery Method Room Air Weight: 196 lb 3.382 oz Body Mass Index (BMI) 32.6 Intake & Output: Intake and Output for Last 24 Hours 12/14/23 12/15/23 12/16/23 23:59 23:59 23:59 Intake Total 4379.64 / 4379.64 450 / 450 Output Total 1350 / 1350 550 / 550 Balance 3029.64 / 3029.64 -100 / -100 Lab / Micro Data 12/15/23 08:00 ROS Constitutional Constitutional: Reports systems reviewed and no addt'l complaints, except as documented Cardiovascular Cardiovascular: Reports systems reviewed and no addt'l complaints, except as documented Respiratory/Chest Respiratory/Chest: Reports systems reviewed and no addt'l complaints, except as documented Gastrointestinal Gastrointestinal: Reports systems reviewed and no addt'l complaints, except as documented Physical Exam Const alert, oriented x3 and no apparent distress HEENT Head and Scalp: atraumatic Resp normal respiratory effort Assessment & Plan (1) intolerance to labor, delivered, current hospitalization: PLAN: Plan s/p PPD # 1 1. routine post delivery care 2. breast feeding- support given 3. rh positive 4. rubella immune
[2023-12-16] MEDS: Prenatal Vits Tablet 1 TABLET PO (11:37)
[2023-12-16] MEDS: 0.9% Saline Lock 10 ML Syringe IV (11:37)
[2023-12-16 12:13] VITALS: BP 101/56; PULSE 71; RESP 18; TEMP 36.6; O2SAT 97
[2023-12-16 15:24] LABS: Absolute Lymphocyte Count 3.13 X10^3/uL (0.83-4.51); Absolute Neutrophil Count 10.9 X10^3/uL (2.0-7.7); Basophil# 0.03 X10^3/uL; Basophil% 0.2 % (0-1); Eosinophil# 0.04 X10^3/uL; Eosinophils% 0.3 % (0-5); Hematocrit 31.5 % (37-47); Hemoglobin 10.6 g/dL (12.0-15.0); Lymphocyte # 3.13 X10^3/ul (0.83-4.51); Lymphocyte % 20.2 % (19-41); Mean Corp Hgb Conc 33.7 g/dL (32-36); Mean Corpuscular Hgb 29.4 pg (27.0-32.0); Mean Corpuscular Volume 87.5 fL (81-99); Mean Platelet Vol. 9.4 fl (6.2-12.0); Monocyte# 1.24 X10^3/uL; NRBC Flagged by Analyzer 0 % (0-5); Neutrophil # 10.91 X10^3/uL (2.7-7.7); Neutrophil % 70.6 % (47-70); Platelet Count 343 K/mm3 (150-450); RBC Distribution Width CV 13.2 % (11.6-14.6); RBC Distribution Width SD 41.5 fl (35.1-43.9); White Blood Count 15.5 K/mm3 (4.4-11.0)
[2023-12-16 16:00] VITALS: BP 98/61; PULSE 76; RESP 18; TEMP 36.6
[2023-12-17] MEDS: Naproxen 500 MG Tablet PO ×2 (01:27→09:54)
[2023-12-17 01:28] VITALS: BP 103/61; PULSE 61; RESP 16; TEMP 36.4; O2SAT 99
[2023-12-17] MEDS: Acetaminophen 500 MG Tablet 1000 MG PO (07:35)
[2023-12-17 07:36] VITALS: BP 101/72; PULSE 71; RESP 17; TEMP 36.8; O2SAT 96
--- NOTE | 2023-12-17 07:57 | PN.OBGYN_ITS ---
Subjective Subjective Patient doing well without complaints. Tolerating PO. Ambulating and voiding without difficulty. Feeding well. Denies chest pain, shortness of breath, calf pain/swelling, fevers, chills, lightheadedness. States pain is controlled from episiotomy/tear. Objective Data Objective Data Vital Signs: Vital Signs Temp Pulse Resp BP Pulse Ox O2 Del Method 98.2 F 71 17 101/72 96 Room Air 12/17/23 07:36 12/17/23 07:36 12/17/23 07:36 12/17/23 07:36 12/17/23 07:36 12/17/23 07:36 Oxygen Delivery Method Room Air Weight: 196 lb 3.382 oz Body Mass Index (BMI) 32.6 Intake & Output: Intake and Output for Last 24 Hours 12/15/23 12/16/23 12/17/23 23:59 23:59 23:59 Intake Total 4379.64 / 4379.64 650 / 650 Output Total 1350 / 1350 550 / 550 Balance 3029.64 / 3029.64 100 / 100 Lab / Micro Data 12/16/23 15:10 Labs: Laboratory Results - last 24 hr 12/16/23 15:10: WBC 15.5 H, RBC 3.60 L, Hgb 10.6 L, Hct 31.5 L, MCV 87.5, MCH 29.4, MCHC 33.7, RDW Std Deviation 41.5, RDW Coeff of Chloe 13.2, Plt Count 343, MPV 9.4, Immature Gran % (Auto) 0.700, Neut % (Auto) 70.6 H, Lymph % (Auto) 20.2, Winkler % (Auto) 8.0, Eos % (Auto) 0.3, Baso % (Auto) 0.2, Absolute Neuts (auto) 10.9 H, Absolute Lymphs (auto) 3.13, Nucleated RBC % 0 Physical Exam Const alert and oriented x3 HEENT normocephalic Eyes PERRL Neck full ROM Resp normal respiratory effort GI soft to palpation GI Narrative: FF below U Assessment & Plan (1) Vacuum-assisted vaginal delivery: COMMENT: 12/15/23 JV Girl: [place]. MLE, 3rd degree PLAN: Plan s/p VAVD PPD # 2 1. routine post delivery care 2. breast feeding- support given 3. rh positive 4. rubella immune 5. Enc stool softener during healing process 6. home today.
[2023-12-17] MEDS: Senna/Docusate Sodium 1 Tablet PO (09:53)
== END 2023-12-17 09:59 | disposition home or self-care (01) | DRG 807 ==
LOC: WPOUT 07:38 → WP 07:38
PROVIDERS: Advanced Practice Midwife; Registered Nurse; Admitting Provider Obstetrics & Gynecology; Referring Provider Obstetrics & Gynecology; Visit Provider Obstetrics & Gynecology
DX: O76 Abnormality in fetal heart rate and rhythm complicating labor and delivery (principal); Z37.0 Single live birth; O21.2 Late vomiting of pregnancy; O99.214 Obesity complicating childbirth; O70.9 Perineal laceration during delivery, unspecified; Z3A.38 38 weeks gestation of pregnancy; O77.0 Labor and delivery complicated by meconium in amniotic fluid; O99.02 Anemia complicating childbirth; Z87.440 Personal history of urinary (tract) infections
CPT/HCPCS: 59025; 59050; 84112; 85025; 86780; 86850; 86900; 86901; 99221; J7120; A4216; G0378; J2405

== ENCOUNTER → 2024-01-26 | Outpatient (CLI) | payer OTHER, SELFPAY | END | disposition home or self-care (01) | LOC: LABSPEC 14:21 | PROVIDERS: Referring Provider Advanced Practice Midwife; Visit Provider Advanced Practice Midwife | DX: N95.0 Postmenopausal bleeding (principal) | CPT/HCPCS: 87624; 88175; G0145 ==

== ENCOUNTER → 2024-03-22 | Outpatient (CLI) | payer OTHER, SELFPAY ==
--- NOTE | 2024-03-22 | IMM_PTH ---
PATIENT: SHAKIR CERDA LOC: [facility] U#:[id number] AGE/SX: 28/F ROOM: RE03/22/[address]: Dr. Khushboo Gonzalez DO : 1995 BED: DIS: 03/22/2024 SPEC #: [id number] RECD: 03/24/24 10:40 STATUS: CRIS REMario #: [id number] EULALIA: 03/22/24 00:[address]: Khushboo Gonzalez DEPT: IMMUNOHISTOCHEMISTRY RECD BY: Freedom Messer ENTERED: 03/24/24 10:40 SP TYPE: IMMUNO OTHR DR: No Primary Care Phys Tissues: A - Uterine cervix, NOS Procedures: p16 (initial) KI-67 (add) PHYSICIAN & INSTITUTION [place] [phone] SPECIMEN INFORMATION: Tissue Source: A- 7o'clock biopsy Clinical Info: ASCUS, HPV+ Specimen Number: [id number] CPT code: 46671,91839 METHODOLOGY: Deparaffinized sections of prefer/formalin-fixed tissue or PAP/DQ stained slides are incubated with monoclonal/polyclonal antibodies/oligonucleotide probes. Localization is made via biotin free immunoperoxidase method. Appropriate controls are performed and reacted as expected. Results on target cell population are indicated in the following table: RESULTS: ANTIBODY / CLONE RESULT Block A P16 (E6H4) positive, rare cell, dim Ki-67 (30-9) positive, low These tests were developed and their performance characteristics determined by [facility]. They may not have been cleared or approved by the U.S. Food and Drug Administration. The FDA has determined that such clearance or approval is not necessary. The above immunohistochemical/dualISH markers are ordered and reviewed by the Pathologist. INTERPRETATION: A. Cervix, 7o'clock, biopsy: No evidence of dysplasia. AM/mr 03/25/2024
--- NOTE | 2024-03-22 | CER_PTH ---
PATIENT: SHAKIR CERDA [facility][id number] AGE/SX: 28/F ROOM: RE03/22/[address]: Dr. Khushboo Gonzalez DO : 1995 BED: DIS: 03/22/2024 SPEC #: [id number] RECD: 03/22/24 14:22 STATUS: CRIS JAXON #: [id number] EULALIA: 03/22/24 00:[address]: Khushboo Gonzalez DEPT: SURGICAL PATHOLOGY RECD BY: Leda Farooq ENTERED: 03/23/24 07:23 SP TYPE: CERV OTHR DR: No Primary Care Phys Tissues: A - Uterine cervix, NOS B - Endocervical Procedures: Surgery Specimen Level IV HEADER OPERATION: Colposcopy PRE-OP DIAGNOSIS: ASCUS, HPV+ TISSUE SUBMITTED: A- 7o'clock biopsy, B- Endometrial curettings MICROSCOPIC DIAGNOSIS A. 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 Chronic inflammation. See comment. B. Endometrial curettings: Scant strips of benign superficial glandular mucosa. AM. 03/24/2024 COMMENT A. Immunohistochemistry ([id number]) supports the above diagnosis. MICROSCOPIC DESCRIPTION Slides are reviewed. GROSS DESCRIPTION A. Received in fixative is one container labeled with the patient's name and designated 7o'clock. The specimen consists of one irregular fragment of light sanchez soft tissue that measures 0.4 x 0.3 x 0.1 cm. The specimen is totally submitted in one cassette. B. Received in fixative is a metallic brush with adherent minute fragments of sanchez-red tissue and labeled with the patient's name and and designated per the requisition as ECC BRUSH. The material is dislodged from the brush and submitted for cell block preparation in one cassette. / 03/23/2024 TC:3 CPT:74667j3
== END | disposition home or self-care (01) ==
LOC: LABSPEC 14:31
PROVIDERS: Referring Provider Obstetrics & Gynecology; Visit Provider Obstetrics & Gynecology
DX: R87.610 Atypical squamous cells of undetermined significance on cytologic smear of cervix (ASC-US) (principal)
CPT/HCPCS: 88305; 88341; 88342

== ENCOUNTER → 2025-04-01 | Outpatient (CLI) | payer OTHER, MEDICAID, SELFPAY ==
[2025-04-01 16:47] LABS: Hematocrit 37.7 % (37-47); Hemoglobin 12.8 g/dL (12.0-15.0); Immature Granulocytes Count 0.020 X10^3/uL (0.0-0.0); Mean Corp Hgb Conc 34.0 g/dL (32-36); Mean Corpuscular Volume 85.3 fL (81-99); Mean Platelet Vol. 9.5 fl (6.2-12.0); NRBC Flagged by Analyzer 0 % (0-5); Platelet Count 414 K/mm3 (150-450); RBC Distribution Width CV 12.4 % (11.6-14.6); RBC Distribution Width SD 38.2 fl (35.1-43.9); Red Blood Count 4.42 M/mm3 (4.2-5.4); White Blood Count 8.8 K/mm3 (4.4-11.0)
[2025-04-01 17:30] LABS: HIV Nonreactive (Nonreactive); Hepatitis B Surface Antigen Nonreactive (Nonreactive); Hepatitis C Antibody Nonreactive (Nonreactive); Syphilis Antibodies Nonreactive (Nonreactive)
[2025-04-04 20:08] LABS: Chlamydia By Nucleic Acid AMP Negative (Negative); Gonococcus By Nucleic Acid AMP Negative (Negative)
[2025-04-08 13:08] LABS: HPV APTIMA, High Risk Negative (Negative)
== END | disposition home or self-care (01) ==
PROVIDERS: Referring Provider Advanced Practice Midwife; Visit Provider Advanced Practice Midwife
DX: O09.90 Supervision of high risk pregnancy, unspecified, unspecified trimester (principal); Z3A.00 Weeks of gestation of pregnancy not specified; Z12.4 Encounter for screening for malignant neoplasm of cervix
CPT/HCPCS: 36415; 85025; 86703; 86762; 86780; 86803; 86850; 86900; 86901; 87086; 87088; 87340; 87491; 87591; 87624; 88175; G0145

== ENCOUNTER → 2025-07-27 | Outpatient (CLI) | payer OTHER, MEDICAID, SELFPAY ==
[2025-07-27 16:36] LABS: Hematocrit 30.1 % (37-47); Hemoglobin 9.9 g/dL (12.0-15.0); Immature Granulocytes Count 0.050 X10^3/uL (0.0-0.0); Mean Corp Hgb Conc 32.9 g/dL (32-36); Mean Corpuscular Volume 88.8 fL (81-99); Mean Platelet Vol. 9.6 fl (6.2-12.0); NRBC Flagged by Analyzer 0 % (0-5); Platelet Count 357 K/mm3 (150-450); RBC Distribution Width CV 12.7 % (11.6-14.6); RBC Distribution Width SD 41.3 fl (35.1-43.9); Red Blood Count 3.39 M/mm3 (4.2-5.4); White Blood Count 9.5 K/mm3 (4.4-11.0)
[2025-07-27 17:27] LABS: HIV Nonreactive (Nonreactive); Syphilis Antibodies Nonreactive (Nonreactive)
[2025-07-27 17:43] LABS: Glucose Challenge Gest 1H 50g 134 mg/dL (70-140)
== END | disposition home or self-care (01) ==
PROVIDERS: Advanced Practice Midwife; Visit Provider Obstetrics & Gynecology
DX: O09.90 Supervision of high risk pregnancy, unspecified, unspecified trimester (principal); Z3A.00 Weeks of gestation of pregnancy not specified; Z13.1 Encounter for screening for diabetes mellitus
CPT/HCPCS: 36415; 82950; 85025; 86703; 86780

== ENCOUNTER → 2025-07-29 | Outpatient (CLI) | payer OTHER, MEDICAID, SELFPAY ==
--- NOTE | 2025-07-29 07:55 | US_ITS ---
PROCEDURE: GALLBLADDER 07/29/2025 REASON FOR EXAM: RUQ PAIN IN Patient is 26 weeks 5 days TECHNIQUE: Procedure Code: USGB Modality: US Procedure: GALLBLADDER COMPARISON: None FINDINGS: Liver: Grossly normal size and echotexture. Measures 16.1 cm. Gallbladder: Distends normally, with multiple shadowing gallstones but no wall thickening or pericholecystic fluid. Gallbladder wall measures 1.3 mm, weatherization field technician notes a negative Hung's sign Common bile duct: Normal measuring 3.2 mm. Pancreas: Nonspecifically echogenic Right kidney measures 10.5 x 5.6 x 5.6 cm. No hydronephrosis, calculi or mass. Renal cortex measures 1.5 cm US/Gallbladder IMPRESSION: Cholelithiasis, no sonographic evidence of acute cholecystitis Reading Location: [id number]
== END | disposition home or self-care (01) ==
LOC: US 07:54
PROVIDERS: Referring Provider Nurse Practitioner Women's Health; Visit Provider Nurse Practitioner Women's Health
DX: R10.11 Right upper quadrant pain (principal)
CPT/HCPCS: 76705